=== PATIENT | female | born 1955 | race African-American/Black ===

== ENCOUNTER 2016-11-10 20:17 | Emergency (ER) | payer MEDICARE, OTHER ==
[~2016-11-10 20:17] MED LIST: HUMULIN N VIAL SUBQ; KEFLEX500 M1 PO; LANTUS100 U/ML SUBQ; PRINIVIL40 MG PO
== END 2016-11-10 20:18 | disposition home or self-care (01) ==
LOC: SED 20:17
DX: T16.2XXA Foreign body in left ear, initial encounter (principal); E11.9 Type 2 diabetes mellitus without complications; I10 Essential (primary) hypertension; Z79.4 Long term (current) use of insulin; Z79.899 Other long term (current) drug therapy; X58.XXXA Exposure to other specified factors, initial encounter
CPT/HCPCS: 69200; 99283